=== PATIENT | female | born 1930 | race Caucasian/White ===

== ENCOUNTER 2016-07-27 06:20 | Observation (INO) | payer OTHER, MEDICARE ==
[~2016-07-27] VITALS: Ht 142.2 cm; Wt 39.4 kg
[~2016-07-27 06:20] MED LIST: BISOPROLOL-HCT1 EAC2 PO; LEVOTHROID25 MCG PO; LYRICA75 MG PO
[2016-07-27 07:51] LABS: HEMATOCRIT 40.4 % (36.0-46.0); MCH 29.5 PG (29.0-34.0); MCHC 32.2 G/DL (30.0-36.0); MCV 91.8 FL (83-99); MEAN PLAT.VOLUME 9.9 uM^3 (9.5-12.4); PLATELET COUNT 128 K/uL (156-360); RBC DIS.WIDTH-CV 13.9 % (11.8-14.6); RBC DIS.WIDTH-SD 46.9 % (39-53); WHITE BLOOD COUNT 13.8 K/uL (4.1-10.2)
[2016-07-27 08:14] LABS: ANION GAP 9 MEQ/L (2-14); CHLORIDE 99 MEQ/L (99-109); POTASSIUM 4.8 MEQ/L (3.7-5.4); SAMPLE HEMOLYSIS CHECK 0; SAMPLE ICTERIC CHECK 0; SAMPLE LIPEMIA CHECK 0; SODIUM 136 MEQ/L (136-147)
[2016-07-27 08:19] LABS: GFR ESTIMATE (CALCULATED) > 59 mL/min/; GLUCOSE 95 mg/dL (70-99); UREA NITROGEN (BUN) 22 mg/dL (9-23)
[2016-07-27] MEDS ORDERED: TENORMIN50 MG PO (08:22)
[2016-07-27] MEDS ORDERED: LEVO-T25 MCG PO (08:23)
[2016-07-27 08:35] LABS: TROP-I INTERPRETATION NEGATIVE; TROPONIN-I < 0.01 ng/mL (0.0-0.30)
[2016-07-27 09:11] LABS: ADD MIUA? NO; BILIRUBIN NEGATIVE; BLOOD NEGATIVE; COLOR YELLOW ((YELLOW)); GLUCOSE (STRIP) NEGATIVE; KETONES 5; LEUKOCYTES NEGATIVE; NITRITE NEGATIVE; PROTEIN (STRIP) 30; SPECIFIC GRAVITY 1.013 (1.000-1.030); UCUL ADDED? NO; UROBILINOGEN 0.2 MG/DL (0.2-1.0)
[2016-07-27] MEDS ORDERED: IRON325 M1 PO (11:55)
[2016-07-27] MEDS ORDERED: OS-CAL 500+D T1 EAC1 PO (11:57)
[2016-07-27 16:00] VITALS: BP 108/51
[2016-07-27 17:18] LABS: INFLUENZA A VIRAL ANTIGEN NEGATIVE; INFLUENZA B VIRAL ANTIGEN NEGATIVE
[2016-07-27 20:02] VITALS: BP 112/59
[2016-07-27 23:54] VITALS: BP 138/80
[2016-07-28 04:12] VITALS: BP 127/77
[2016-07-28 07:24] LABS: ALKALINE PHOSPHATASE 82 IU/L (3-129); ANION GAP 7 MEQ/L (2-14); CHLORIDE 99 MEQ/L (99-109); GFR ESTIMATE (CALCULATED) 56 mL/min/; GLUCOSE 100 mg/dL (70-99); SAMPLE HEMOLYSIS CHECK 0; SAMPLE ICTERIC CHECK 0; SAMPLE LIPEMIA CHECK 0; SODIUM 135 MEQ/L (136-147); TOTAL BILIRUBIN 2.3 MG/DL (0.0-1.0); UREA NITROGEN (BUN) 23 mg/dL (9-23)
[2016-07-28 07:32] LABS: EOSINOPHIL (%) 0.1 % (0-5); HEMATOCRIT 35.6 % (36.0-46.0); IMMATURE GRANULOCYTE (%) 1.3 % (0.0-0.7); IMMATURE GRANULOCYTE COUNT 0.2 K/uL; INSTRUMENT ABS NEUTROPHIL CT 15.6 K/uL; LYMPHOCYTE COUNT 0.7 K/uL (1.0-2.8); MCHC 32.6 G/DL (30.0-36.0); MEAN PLAT.VOLUME 9.6 uM^3 (9.5-12.4); MONOCYTE (%) 6.5 % (3-12); MONOCYTE COUNT 1.2 K/uL (0-0.8); NEUTROPHIL (%) 87.9 % (45-76); NEUTROPHIL COUNT 15.6 K/uL (1.8-6.4); PLATELET COUNT 175 K/uL (156-360); RBC DIS.WIDTH-CV 14.3 % (11.8-14.6); RBC DIS.WIDTH-SD 47.9 % (39-53); RED BLOOD COUNT 3.87 M/uL (3.80-5.20); WHITE BLOOD COUNT 17.8 K/uL (4.1-10.2)
[2016-07-28 07:51] VITALS: BP 130/58
[2016-07-28] MEDS ORDERED: AUGMENTIN875 MG PO (10:16)
[2016-07-28] MEDS ORDERED: VENTOLIN HFA18 GM IH (10:16)
[2016-07-28 11:32] VITALS: BP 128/59
== END 2016-07-28 13:15 | disposition home health service (06) ==
LOC: EME 06:20 → 5SOUTH 08:22 → EDOF 08:22 → 5SOUTH 08:22
PROVIDERS: Emergency Medicine; Hospitalist
DX: J18.9 Pneumonia, unspecified organism (principal); E03.9 Hypothyroidism, unspecified; M81.0 Age-related osteoporosis without current pathological fracture; I10 Essential (primary) hypertension; G62.9 Polyneuropathy, unspecified
CPT/HCPCS: 71010; 80048; 80053; 81003; 83605; 84484; 85025; 85027; 87040; 87502; 93005; 99202; 99281; 99285; G0378; J0456; J0696; J1650; J7050

== ENCOUNTER 2016-11-09 01:46 | Emergency (ER) | payer OTHER, MEDICARE ==
[~2016-11-09] VITALS: Ht 142.2 cm; Wt 37.9 kg
[~2016-11-09 01:46] MED LIST changes: +AUGMENTIN875 MG PO; +IRON325 M1 PO; +LEVO-T25 MCG PO; +OS-CAL 500+D T1 EAC1 PO; +TENORMIN50 MG PO; +VENTOLIN HFA18 GM IH
[2016-11-09] MEDS ORDERED: NAPROSYN500 MG PO (04:25)
[2016-11-09] MEDS ORDERED: LEVAQUIN750 MG PO (04:25)
[2016-11-09 05:14] VITALS: BP 152/72
[2016-11-09] MEDS ORDERED: LEVO-T25 MCG PO (18:30)
[2016-11-09] MEDS ORDERED: AMLODIPINE BES2.5 MG PO (18:30)
== END 2016-11-09 05:17 | disposition home or self-care (01) ==
LOC: EME 01:46
PROC: 2W3CX1Z Immobilization of Right Lower Arm using Splint (ICD-10-PCS; principal; 2016-11-09)
DX: S62.101A Fracture of unspecified carpal bone, right wrist, initial encounter for closed fracture (principal); W01.198A Fall on same level from slipping, tripping and stumbling with subsequent striking against other object, initial encounter; J18.9 Pneumonia, unspecified organism; I10 Essential (primary) hypertension
CPT/HCPCS: 71020; 71250; 73110; 99281; 99284

== ENCOUNTER 2016-11-09 14:30 | Inpatient (IN) | payer OTHER, MEDICARE ==
[~2016-11-09] VITALS: Ht 147.3 cm; Wt 36.5 kg
[~2016-11-09 14:30] MED LIST changes: +LEVAQUIN750 MG PO; +NAPROSYN500 MG PO
[2016-11-09 16:09] LABS: MCHC 33.2 G/DL (30.0-36.0); MCV 90.2 FL (83-99); MEAN PLAT.VOLUME 9.3 uM^3 (9.5-12.4); PLATELET COUNT 207 K/uL (156-360); RBC DIS.WIDTH-CV 13.6 % (11.8-14.6); RBC DIS.WIDTH-SD 45.2 % (39-53); WHITE BLOOD COUNT 10.6 K/uL (4.1-10.2)
[2016-11-09 16:19] LABS: CHLORIDE 100 mEq/L (99-109); POTASSIUM 4.3 mEq/L (3.7-5.4); SODIUM 136 mEq/L (136-147)
[2016-11-09 16:21] LABS: GLUCOSE 85 mg/dL (70-99)
[2016-11-09 16:22] LABS: ANION GAP 12 MEQ/L (2-14)
[2016-11-09 16:25] LABS: GFR ESTIMATE (CALCULATED) > 59 mL/min/
[2016-11-09 16:26] LABS: UREA NITROGEN (BUN) 22 mg/dL (9-23)
[2016-11-09] MEDS ORDERED: LEVO-T25 MCG PO (18:30)
[2016-11-09] MEDS ORDERED: AMLODIPINE BES2.5 MG PO (18:30)
[2016-11-09 21:56] VITALS: BP 186/84
[2016-11-09 23:18] VITALS: BP 149/73
[2016-11-10 03:48] VITALS: BP 153/78
[2016-11-10 06:20] LABS: EOSINOPHIL (%) 0.5 % (0-5); HEMATOCRIT 32.5 % (36.0-46.0); IMMATURE GRANULOCYTE (%) 0.4 % (0.0-0.7); INSTRUMENT ABS NEUTROPHIL CT 5.9 K/uL; LYMPHOCYTE COUNT 0.5 K/uL (1.0-2.8); MCHC 33.8 G/DL (30.0-36.0); MCV 91.5 FL (83-99); MEAN PLAT.VOLUME 9.6 uM^3 (9.5-12.4); NEUTROPHIL (%) 79.6 % (45-76); NEUTROPHIL COUNT 5.9 K/uL (1.8-6.4); PLATELET COUNT 196 K/uL (156-360); RBC DIS.WIDTH-CV 13.8 % (11.8-14.6); RBC DIS.WIDTH-SD 47.1 % (39-53); RED BLOOD COUNT 3.55 M/uL (3.80-5.20); WHITE BLOOD COUNT 7.5 K/uL (4.1-10.2)
[2016-11-10 07:11] LABS: ANION GAP 6 MEQ/L (2-14); CHLORIDE 102 MEQ/L (99-109); GFR ESTIMATE (CALCULATED) > 59 mL/min/; GLUCOSE 83 mg/dL (70-99); POTASSIUM 4.2 MEQ/L (3.7-5.4); SAMPLE HEMOLYSIS CHECK 0; SAMPLE ICTERIC CHECK 0; SAMPLE LIPEMIA CHECK 0; SODIUM 137 MEQ/L (136-147); UREA NITROGEN (BUN) 14 mg/dL (9-23)
[2016-11-10 07:41] VITALS: BP 154/78
[2016-11-10 12:05] VITALS: BP 129/66
[2016-11-10 16:39] VITALS: BP 132/67
[2016-11-10 19:20] VITALS: BP 143/83
[2016-11-11] VITALS: BP 139/65
[2016-11-11 04:07] VITALS: BP 148/67
[2016-11-11 07:45] VITALS: BP 142/71
[2016-11-11] MEDS ORDERED: ROCEPHIN1000 MG IV (10:47)
[2016-11-11] MEDS ORDERED: ALBUTEROL2.5 MG/0.5 AEROSOL (10:49)
[2016-11-11] MEDS ORDERED: TYLENOL ARTHRI650 MG PO (10:51)
[2016-11-11 11:14] LABS: INTERNAL CONTROL VALID? YES
[2016-11-11 12:08] VITALS: BP 126/67
[2016-11-11 16:01] VITALS: BP 162/83
[2016-11-11 18:57] VITALS: BP 160/81
[2016-11-12 06:16] LABS: ANION GAP 5 MEQ/L (2-14); CHLORIDE 99 MEQ/L (99-109); GFR ESTIMATE (CALCULATED) > 59 mL/min/; GLUCOSE 83 mg/dL (70-99); POTASSIUM 4.1 MEQ/L (3.7-5.4); SAMPLE HEMOLYSIS CHECK 0; SAMPLE ICTERIC CHECK 0; SAMPLE LIPEMIA CHECK 0; SODIUM 133 MEQ/L (136-147); UREA NITROGEN (BUN) 13 mg/dL (9-23)
[2016-11-12 06:22] LABS: HEMATOCRIT 34.2 % (36.0-46.0); MCH 29.6 PG (29.0-34.0); MCHC 32.7 G/DL (30.0-36.0); MCV 90.2 FL (83-99); MEAN PLAT.VOLUME 9.1 uM^3 (9.5-12.4); RBC DIS.WIDTH-CV 13.6 % (11.8-14.6); RBC DIS.WIDTH-SD 44.9 % (39-53); RED BLOOD COUNT 3.79 M/uL (3.80-5.20); WHITE BLOOD COUNT 5.2 K/uL (4.1-10.2)
[2016-11-12 06:56] LABS: PLATELET COUNT 261 K/uL (156-360)
[2016-11-12 07:58] VITALS: BP 159/67
[2016-11-12 12:07] VITALS: BP 123/75
== END 2016-11-12 12:00 | DRG 194 ==
LOC: EME 14:30 → EDOF 18:42 → 5SOUTH 18:42
PROVIDERS: Hospitalist; Internal Medicine; Nurse Practitioner Family
DX: J18.9 Pneumonia, unspecified organism (principal); S52.209A Unspecified fracture of shaft of unspecified ulna, initial encounter for closed fracture; I10 Essential (primary) hypertension; G62.9 Polyneuropathy, unspecified; J90 Pleural effusion, not elsewhere classified; R13.10 Dysphagia, unspecified; J32.3 Chronic sphenoidal sinusitis; S52.90XA Unspecified fracture of unspecified forearm, initial encounter for closed fracture; M81.0 Age-related osteoporosis without current pathological fracture; E03.9 Hypothyroidism, unspecified; I73.9 Peripheral vascular disease, unspecified; R29.6 Repeated falls; W01.198A Fall on same level from slipping, tripping and stumbling with subsequent striking against other object, initial encounter; Z68.1 Body mass index [BMI] 19.9 or less, adult; Z82.49 Family history of ischemic heart disease and other diseases of the circulatory system
CPT/HCPCS: 70450; 71020; 80048; 82306; 84443; 85025; 85027; 87040; 87070; 87205; 87449; 99202; 99281; 99285; J0456; J0696; J1644; J7050

== ENCOUNTER 2016-11-12 10:53 | Inpatient (IN) | payer OTHER, MEDICARE ==
[~2016-11-12] VITALS: Ht 142.2 cm; Wt 36.5 kg
[~2016-11-12 10:53] MED LIST changes: +ALBUTEROL2.5 MG/0.5 AEROSOL; +AMLODIPINE BES2.5 MG PO; +ROCEPHIN1000 MG IV; +TYLENOL ARTHRI650 MG PO
[2016-11-12 12:42] VITALS: BP 157/68
[2016-11-12 15:32] VITALS: BP 162/69
[2016-11-12 22:45] VITALS: BP 149/70
[2016-11-13 05:39] VITALS: BP 149/72
[2016-11-13 06:13] LABS: HEMATOCRIT 36.4 % (36.0-46.0); MCH 29.4 PG (29.0-34.0); MCHC 32.7 G/DL (30.0-36.0); MCV 89.9 FL (83-99); MEAN PLAT.VOLUME 8.9 uM^3 (9.5-12.4); PLATELET COUNT 289 K/uL (156-360); RBC DIS.WIDTH-CV 13.6 % (11.8-14.6); RBC DIS.WIDTH-SD 44.9 % (39-53); RED BLOOD COUNT 4.05 M/uL (3.80-5.20); WHITE BLOOD COUNT 5.3 K/uL (4.1-10.2)
[2016-11-13 06:40] LABS: ALKALINE PHOSPHATASE 110 IU/L (3-129); ANION GAP 6 MEQ/L (2-14); CHLORIDE 100 MEQ/L (99-109); GFR ESTIMATE (CALCULATED) > 59 mL/min/; GLUCOSE 83 mg/dL (70-99); POTASSIUM 4.3 MEQ/L (3.7-5.4); SAMPLE HEMOLYSIS CHECK 0; SAMPLE ICTERIC CHECK 0; SAMPLE LIPEMIA CHECK 0; SODIUM 135 MEQ/L (136-147); TOTAL BILIRUBIN 0.6 MG/DL (0.0-1.0); UREA NITROGEN (BUN) 13 mg/dL (9-23)
[2016-11-13 15:03] VITALS: BP 165/72
[2016-11-14 05:34] VITALS: BP 147/67
[2016-11-14 15:53] VITALS: BP 151/67
[2016-11-15 05:31] VITALS: BP 171/74
[2016-11-15 15:05] VITALS: BP 155/71
[2016-11-16 04:50] VITALS: BP 153/68
[2016-11-16 17:13] VITALS: BP 183/74
[2016-11-16 17:40] VITALS: BP 170/74
[2016-11-17 04:51] VITALS: BP 130/64
[2016-11-17 07:58] VITALS: BP 154/66
[2016-11-17 15:21] VITALS: BP 146/67
[2016-11-18 05:38] VITALS: BP 109/53
[2016-11-18 07:28] VITALS: BP 149/66
[2016-11-18 15:44] VITALS: BP 160/71
[2016-11-19 06:39] VITALS: BP 125/59
[2016-11-19 15:57] VITALS: BP 152/61
[2016-11-20 04:59] VITALS: BP 149/67
[2016-11-20 15:22] VITALS: BP 151/67
[2016-11-21 05:22] VITALS: BP 131/58
[2016-11-21 15:27] VITALS: BP 134/62
[2016-11-22 05:03] VITALS: BP 125/57
[2016-11-22 06:37] LABS: HEMATOCRIT 35.3 % (36.0-46.0); MCH 30.4 PG (29.0-34.0); MCHC 32.9 G/DL (30.0-36.0); MCV 92.7 FL (83-99); MEAN PLAT.VOLUME 8.7 uM^3 (9.5-12.4); PLATELET COUNT 324 K/uL (156-360); RBC DIS.WIDTH-CV 14.6 % (11.8-14.6); RBC DIS.WIDTH-SD 49.4 % (39-53); RED BLOOD COUNT 3.81 M/uL (3.80-5.20); WHITE BLOOD COUNT 6.2 K/uL (4.1-10.2)
[2016-11-22 07:06] LABS: ALKALINE PHOSPHATASE 99 IU/L (3-129); ANION GAP 5 MEQ/L (2-14); CHLORIDE 98 MEQ/L (99-109); GFR ESTIMATE (CALCULATED) > 59 mL/min/; GLUCOSE 86 mg/dL (70-99); POTASSIUM 4.6 MEQ/L (3.7-5.4); SAMPLE HEMOLYSIS CHECK 0; SAMPLE ICTERIC CHECK 0; SAMPLE LIPEMIA CHECK 0; SODIUM 134 MEQ/L (136-147); TOTAL BILIRUBIN 0.7 MG/DL (0.0-1.0); UREA NITROGEN (BUN) 16 mg/dL (9-23)
[2016-11-22 15:48] VITALS: BP 130/63
[2016-11-23 05:22] VITALS: BP 132/63
== END 2016-11-23 13:00 | disposition home health service (06) | DRG 559 ==
LOC: 3WEST 10:53 → ENPENDDIS 11-23 → 3WEST 11-23 13:00
PROVIDERS: Physical Medicine & Rehabilitation Pain Medicine
PROC: F07M0ZZ Range of Motion and Joint Mobility Treatment of Musculoskeletal System - Whole Body (ICD-10-PCS; principal; 2016-11-12)
DX: S52.502D Unspecified fracture of the lower end of left radius, subsequent encounter for closed fracture with routine healing (principal); S52.602D Unspecified fracture of lower end of left ulna, subsequent encounter for closed fracture with routine healing; J18.9 Pneumonia, unspecified organism; R26.2 Difficulty in walking, not elsewhere classified; I10 Essential (primary) hypertension; E03.9 Hypothyroidism, unspecified; D64.9 Anemia, unspecified; E87.1 Hypo-osmolality and hyponatremia; M41.9 Scoliosis, unspecified; M81.0 Age-related osteoporosis without current pathological fracture; G62.9 Polyneuropathy, unspecified
CPT/HCPCS: 71020; 73100; 80053; 85027; 97110 GO; 97530 GP; 99202; J0696; J1650; J7050; Q0169